=== PATIENT | male | born 1975 | race African-American/Black ===

== ENCOUNTER 2016-12-04 16:38 | Emergency (ER) | payer OTHER ==
[~2016-12-04] VITALS: Ht 195.6 cm; Wt 114.0 kg
[~2016-12-04 16:38] MED LIST: BACTDS PO; CARI350T PO; GRIS500T6 PO; HYDR-2086 PO; IBUP-1542 PO; IBUP800T25 PO; SERT25TA PO
[2016-12-04 16:39] VITALS: Ht 195.6 cm; Wt 114.0 kg
[2016-12-04] MEDS ORDERED: ALBU8.5H3 INH (17:36)
--- NOTE | 2016-12-04 17:43 | ERD ---
ER Documentation Chief Complaint Date/Time DATE: 12/04/16 TIME: 17:37 Chief Complaint HX OF ASTHMA NEEDS INHALER HPI Patient is a 41-year-old male past medical history of asthma who presents the emergency department for medication refill. Patient states he currently is fighting a cold. Patient does have a dry cough. Patient states he ran out of his inhaler this morning thus would like a refill at this time. Patient denies any fevers, chills, chest pain, rhinorrhea, throat pain, ear pain, body aches. ROS All systems reviewed and are negative except as per history of present illness. Medications Home Meds Active Scripts Albuterol Sulfate* (Proair HFA*) 8.5 Gm Hfa.aer.ad, 2 PUFF INH Q4, #1 INHALER Prov:NIKKO LEVY PA-C 12/04/16 Griseofulvin,microsize (Griseofulvin) 500 Mg Tablet, 500 MG PO BID for 14 Days, TAB Prov:WES ALTAMIRANO PA-C 03/09/16 Ibuprofen* (Motrin*) 600 Mg Tab, 600 MG PO Q6H Y for PAIN AND OR ELEVATED TEMP, #30 TAB Prov:WES ALTAMIRANO PA-C 03/09/16 Sulfamethoxazole-Trimethoprim* (Bactrim* DS) 800-160 Mg Tab, 1 TAB PO BID for 7 Days, TAB Prov:WES ALTAMIRANO PA-C 03/09/16 Hydrocodone Bit-Acetaminophen* (Vicodin*) 5-300 Tab, 2 TAB PO Q4H Y for PAIN, # 10 TAB Prov:MILI SWANSON MD 01/09/16 Sulfamethoxazole-Trimethoprim* (Bactrim* DS) 800-160 Mg Tab, 2 TAB PO BID for 10 Days, TAB Prov:MILI SWANSON MD 01/09/16 Griseofulvin,microsize (Griseofulvin) 500 Mg Tablet, 500 MG PO DAILY for 45 Days , TAB Prov:MILI SWANSON MD 01/09/16 Hydrocodone Bit-Acetaminophen* (Vicodin*) 5-300 Tab, 1 TAB PO Q4H Y for PAIN, # 5 TAB Prov:ITALO JAUREGUI NP 09/12/15 Ibuprofen* (Motrin*) 800 Mg Tab, 800 MG PO Q6, #30 TAB Prov:ITALO JAUREGUI Viry [employer] 09/12/15 Carisoprodol* (Soma*) 350 Mg Tablet, 350 MG PO TID Y for MUSCLE SPASMS, #15 TAB Prov:GLORIA LYLESAfrica DO 07/30/15 Ibuprofen* (Motrin*) 600 Mg Tab, 600 MG PO Q6H Y for PAIN AND OR ELEVATED TEMP, #30 Prov:GLORIA LYLESAfrica DO 07/30/15 Reported Medications Sertraline Hcl* (Zoloft*) 25 Mg Tablet, 25 MG PO DAILY, TAB 07/30/15 Allergies Allergies: Coded Allergies: No Known Allergies (Verified Allergy, Mild, 07/30/15) PMhx/Soc History of Surgery: Yes (EYE, reapai "lazy eye") Anesthesia Reaction: No Hx Neurological Disorder: No Hx Respiratory Disorders: Yes (ASTHMA) Hx Cardiac Disorders: No Hx Psychiatric Problems: Yes (DEPRESSION) Hx Miscellaneous Medical Probl: Yes (l clavical fx, bilat knee fx) Hx Alcohol Use: No (2 "fourlokos" today) Hx Substance Use: No (marijuana ) Hx Tobacco Use: Yes (pack/ day) FmHx Family History: No diabetes Physical Exam Vitals Vital Signs Date Time Temp Pulse Resp B/P Pulse Ox O2 Delivery O2 Flow Rate FiO2 12/04/16 17:49 98 20 99 12/04/16 16:39 97.1 111 20 129/82 95 Physical Exam GENERAL: Well-developed, well-nourished male. Appears in no acute distress. No abdominal retractions, no nasal flaring, no tripoding. Patient is speaking in full sentences. HEAD: Normocephalic, atraumatic. No deformities or ecchymosis. EYE: Pupils equal, round, and reactive to light. EOMs intact. No conjunctival erythema. No eye discharge. ENT: External ear without any masses or tenderness. Auditory canals clear bilaterally. TM visualized bilaterally, non-erythematous, non-bulging. Nasal mucosa pink with no discharge. Oropharynx is pink without any tonsillar erythema or exudates. No uvula deviation. No kissing tonsils. NECK: Supple. No meningismus. Normal ROM of the neck. LUNG: Clear to auscultation bilaterally. No rhonchi, wheezing, rales or coarse breath sounds. HEART: Regular rate and rhythm. No murmurs, rubs or gallops. BACK: No midline tenderness. EXTREMITES: Equal pulses bilaterally. No peripheral clubbing, cyanosis or edema. No unilateral leg swelling. NEUROLOGIC: Alert and oriented to person, place and time. Moving all four extremities. 5/5 strength in all extremities. Normal speech. Steady gait. SKIN: Normal color. Warm and dry. No rashes or lesions. Procedures/MDM MEDICAL DECISION MAKING: Patient is a 41-year-old male who presents to emergency department for medication refill of his albuterol inhaler. Patient does have a history of asthma. Patient was using inhaler this morning.. Vital signs were reviewed. Patient is afebrile. Patient was not hypoxic. Patient was hemodynamically stable. At discharge, patient's vitals were rechecked. Patient's vitals remained stable. Patient continued to have O2 sats of above 95%. At this time , patient's presentation is most consistent with asthma. Low suspicion for status asthmaticus, respiratory distress, respiratory failure, bronchitis or pneumonia. PRESCRIPTION: Albuterol inhaler DISCHARGE: At this time, patient is stable for discharge and outpatient management. Smoking cessation advised. I have instructed the patient to follow-up with his/ her primary care physician in 1-2 days. I have discussed with the patient the possibility of needing to see a specialist for further workup and imaging studies if symptoms persist. I have instructed the patient to promptly return to the ER for any new or worsening symptoms including increased pain, fever, nausea, vomiting, weakness or LOC. The patient and/or family expressed understanding of and agreement with this plan. All questions were answered. Home care instructions were provided. Departure Diagnosis: Primary Impression: Encounter for medication refill Additional Impression: Asthma Asthma severity: unspecified severity Asthma complication type: uncomplicated Qualified Code: J45.909 - Uncomplicated asthma, unspecified asthma severity Condition: Stable Patient Instructions: Taking Medicine Safely Referrals: COMMUNITY CLINICS YOU HAVE RECEIVED A MEDICAL SCREENING EXAM AND THE RESULTS INDICATE THAT YOU DO NOT HAVE A CONDITION THAT REQUIRES URGENT TREATMENT IN THE EMERGENCY DEPARTMENT. FURTHER EVALUATION AND TREATMENT OF YOUR CONDITION CAN WAIT UNTIL YOU ARE SEEN IN YOUR DOCTORS OFFICE WITHIN THE NEXT 1-2 DAYS. IT IS YOUR RESPONSIBILITY TO MAKE AN APPOINTMENT FOR FOLOW-UP CARE. IF YOU HAVE A PRIMARY DOCTOR --you should call your primary doctor and schedule an appointment IF YOU DO NOT HAVE A PRIMARY DOCTOR YOU CAN CALL OUR PHYSICIAN REFERRAL HOTLINE AT IF YOU CAN NOT AFFORD TO SEE A PHYSICIAN YOU CAN CHOSE FROM THE FOLLOWING [facility] [address] [facility] [address] [facility] [address] [facility] [address] [facility] [address] [facility]. [facility] [address] [facility]. [facility] YOU HAVE RECEIVED A MEDICAL SCREENING EXAM AND THE RESULTS INDICATE THAT YOU DO NOT HAVE A CONDITION THAT REQUIRES URGENT TREATMENT IN THE EMERGENCY DEPARTMENT. FURTHER EVALUATION AND TREATMENT OF YOUR CONDITION CAN WAIT UNTIL YOU ARE SEEN IN YOUR DOCTORS OFFICE WITHIN THE NEXT 1-2 DAYS. IT IS YOUR RESPONSIBILITY TO MAKE AN APPOINTMENT FOR FOLOW-UP CARE. IF YOU HAVE A PRIMARY DOCTOR --you should call your primary doctor and schedule and appointment IF YOU DO NOT HAVE A PRIMARY DOCTOR YOU CAN CALL OUR PHYSICIAN REFERRAL HOTLINE AT . IF YOU CAN NOT AFFORD TO SEE A PHYSICIAN YOU CAN CHOSE FROM THE FOLLOWING [facility]: [facility] [address] [place] [address] [facility] [address] [place] [address] [facility] [address] [place] [address] Additional Instructions: Smoking cessation advised. Call your primary care doctor TOMORROW for an appointment during the next 1-2 days.See the doctor sooner or return here if your condition worsens before your appointment time. Return the emergency department for any new or worsening symptoms including but not limited to severe cough, shortness of breath, chest pain, difficulty breathing, loss of consciousness. NIKKO LEVY PA-C Dec 04, 2016 17:43
[2016-12-04 17:49] VITALS: PULSE 98; RESP 20
== END 2016-12-04 17:45 | disposition home or self-care (01) ==
LOC: E/R 16:38
DX: Z76.0 Encounter for issue of repeat prescription (principal); J45.909 Unspecified asthma, uncomplicated; F17.210 Nicotine dependence, cigarettes, uncomplicated
CPT/HCPCS: 99281